=== PATIENT | male | born 1990 | race Caucasian/White ===

== ENCOUNTER 2017-04-16 11:18 | Emergency (ER) | payer OTHER ==
[~2017-04-16] VITALS: Ht 175.3 cm; Wt 93.2 kg
[2017-04-16] MEDS ORDERED: PROZ20CA11 PO (11:26)
[2017-04-16] MEDS ORDERED: ALBUTEROL SULFATE 2.5 MG/0.5 ML INH NEB SOLN NEB ONE (12:30)
--- NOTE | 2017-04-16 13:51 | REP ---
Chest two views HISTORY: Shortness of breath Comparison: None The lungs are clear. The heart is normal in size. The pulmonary vasculature is normal in appearance. The bony structure is intact. IMPRESSION: No acute disease. Signed by Charan Pang MD 04/16/2017 01:43 P
[2017-04-16] MEDS ORDERED: ALBU17IN INH (14:01)
[2017-04-16 14:07] VITALS: BP 138/84
== END 2017-04-16 14:13 | disposition home or self-care (01) ==
LOC: M ED 11:18
DX: R06.02 Shortness of breath (principal); F41.9 Anxiety disorder, unspecified; Z87.891 Personal history of nicotine dependence; Z79.899 Other long term (current) drug therapy